=== PATIENT | male | born 1995 | race Caucasian/White ===

== ENCOUNTER 2019-03-13 10:28 | Emergency (ER) | payer SELFPAY ==
[~2019-03-13] VITALS: Ht 180.3 cm; Wt 115.9 kg
[~2019-03-13 10:28] MED LIST: NOCURR
[2019-03-13 12:23] VITALS: BP 141/81
== END 2019-03-13 12:00 | disposition home or self-care (01) ==
LOC: EMS 10:30
DX: H66.92 Otitis media, unspecified, left ear (principal); R03.0 Elevated blood-pressure reading, without diagnosis of hypertension